=== PATIENT | female | born 1995 ===

== ENCOUNTER → 2020-12-12 | Outpatient (CLI) | payer OTHER ==
[~2020-12-12] MED LIST: DICLOFENAC POTA50 MG PO; PROTONIX40 MG PO; SKELAXIN800 MG PO; WELLBUTRIN XL150 M1
== END | disposition home or self-care (01) ==
LOC: LAB 15:37
PROVIDERS: ATTEND Emergency Medicine Pediatric Emergency Medicine
DX: Z03.818 Encounter for observation for suspected exposure to other biological agents ruled out (principal)